=== PATIENT | male | born 1965 | race Caucasian/White ===

== ENCOUNTER → 2017-02-14 | Outpatient (CLI) | payer BC ==
--- NOTE | 2017-02-14 11:37 | DI ---
Indication:ITS.REASON: R13.19 DYSPHAGIA Procedure: ESOPHAGRAM ESOPHAGRAM: Technique:After ingesting air crystals, the patient swallowed thick and thin barium without difficulty. Fluoroscopic imaging was obtained in the upright LPO, supine AP, and right lateral positions. Findings:The esophagus is negative. Esophageal motility appears normal. The cricopharyngeus muscle relaxes completely. There is no Zenker's diverticulum. No hiatal hernia or gastroesophageal reflux is visualized. If clinically indicated, a modified barium swallow with speech pathology could be performed for further evaluation of the swallowing mechanism. Impression: Negative esophagram. Fluoroscopy dose: 109.84 mGy (Cumulative air kerma) Jeff Flowers RPA/EDEL performed this under my direct supervision. .
== END ==
LOC: IMA 09:10
PROVIDERS: ATTEND Family Medicine
DX: R13.19 Other dysphagia (principal)